=== PATIENT | female | born 1990 | race Caucasian/White ===

== ENCOUNTER 2023-10-05 04:54 | Emergency (ER) | payer BC, MEDICAID ==
[~2023-10-05] VITALS: Ht 162.6 cm; Wt 55.0 kg
[2023-10-05 05:50] VITALS: PULSE 75; RESP 16; O2SAT 96
[2023-10-05 06:09] LABS: Basophils # (auto) 0 10 ^3/uL (0-0.2); Basophils % (auto) 0.5 % (0.0-2.0); Eosinophils # (auto) 0.1 10 ^3/uL (0-0.8); Eosinophils % (auto) 1.9 % (0.0-7.0); Hematocrit 33.3 % (36.0-46.0); Hemoglobin 11.6 g/dL (12.2-16.2); Lymphocytes # (auto) 1.6 10 ^3/uL (0.4-5.4); Lymphocytes % (auto) 20.8 % (10.0-50.0); Mean Corpuscular Hemoglobin 31.2 pg (28.0-32.0); Mean Corpuscular Hgb Conc. 34.8 g/dL (32.0-36.0); Mean Corpuscular Volume 89.6 fL (80.0-100.0); Monocytes # (auto) 0.5 10 ^3/uL (0-1.3); Neutrophils # (auto) 5.5 10 ^3/uL (1.6-8.6); Neutrophils % (auto) 70.8 % (37.0-80.0); Red Blood Cells 3.71 10^6/uL (4.0-5.20); Red Cell Distribution Width 13.6 % (11.8-14.3); White Blood Cell 7.7 10^3/uL (4.4-10.8)
[2023-10-05 06:18] LABS: Alkaline Phosphatase 52 U/L (46-116); Anion Gap 10 (5-15); Aspartate Aminotransferase 10 U/L (13-40); BUN/Creatinine Ratio 9.8 (10.0-20.0); Blood Urea Nitrogen 6 mg/dL (9-23); Calcium 9.5 mg/dL (8.7-10.4); Carbon Dioxide 24 mmol/L (20-30); Chloride 108 mmol/L (98-107); Glucose 85 mg/dL (74-106); Potassium 4.1 mmol/L (3.5-5.1); Sodium 142 mmol/L (136-145)
[2023-10-05 06:19] LABS: Bilirubin, Total 0.5 mg/dL (0.2-1.0); Total Protein 6.7 g/dL (5.7-8.2)
[2023-10-05 06:50] LABS: Urine Bacteria None Seen /hpf (None Seen)
[2023-10-05 07:03] LABS: Alanine Aminotransferase < 9 U/L (7-40)
[2023-10-05 07:18] LABS: Urine Blood Negative /uL (Negative); Urine Clarity Clear (Clear); Urine Color Light-Yellow (Yellow); Urine Protein, UAD Negative (Negative); Urine Urobilinogen Normal (Negative); Urine WBC 6 /hpf (0 - 5); Urine pH 6.5 (5.0-9.0)
[2023-10-05] MEDS ORDERED: NITR-87 PO (07:56)
[2023-10-05 08:31] VITALS: BP 98/57; PULSE 72; RESP 12; TEMP 97.2; O2SAT 100
[2023-10-06] MEDS ORDERED: ACET-1304 PO (02:19)
== END 2023-10-05 09:33 | disposition home or self-care (01) ==
LOC: ER 04:54
DX: O23.32 Infections of other parts of urinary tract in pregnancy, second trimester (principal); R10.2 Pelvic and perineal pain; N39.0 Urinary tract infection, site not specified; Z3A.17 17 weeks gestation of pregnancy; Z88.1 Allergy status to other antibiotic agents
CPT/HCPCS: 36415; 36430; 76805; 80053; 81001; 84702; 85025; 86850; 86900; 86901

== ENCOUNTER 2023-10-05 22:42 | Emergency (ER) | payer BC, MEDICAID ==
[~2023-10-05] VITALS: Ht 162.6 cm; Wt 54.5 kg
[~2023-10-05 22:42] MED LIST: NITR-87 PO
[2023-10-05 23:49] LABS: Basophils # (auto) 0 10 ^3/uL (0-0.2); Basophils % (auto) 0.4 % (0.0-2.0); Eosinophils # (auto) 0.1 10 ^3/uL (0-0.8); Eosinophils % (auto) 0.5 % (0.0-7.0); Hematocrit 29.5 % (36.0-46.0); Hemoglobin 10.6 g/dL (12.2-16.2); Lymphocytes # (auto) 1.2 10 ^3/uL (0.4-5.4); Lymphocytes % (auto) 11.1 % (10.0-50.0); Mean Corpuscular Hemoglobin 31.8 pg (28.0-32.0); Mean Corpuscular Hgb Conc. 35.9 g/dL (32.0-36.0); Mean Corpuscular Volume 88.7 fL (80.0-100.0); Monocytes # (auto) 0.4 10 ^3/uL (0-1.3); Monocytes % (auto) 3.5 % (0.0-12.0); Neutrophils # (auto) 8.9 10 ^3/uL (1.6-8.6); Neutrophils % (auto) 84.5 % (37.0-80.0); Red Blood Cells 3.32 10^6/uL (4.0-5.20); Red Cell Distribution Width 13.3 % (11.8-14.3); White Blood Cell 10.6 10^3/uL (4.4-10.8)
[2023-10-05 23:58] LABS: Chloride 108 mmol/L (98-107); Potassium 3.5 mmol/L (3.5-5.1); Sodium 137 mmol/L (136-145)
[2023-10-05 23:59] LABS: Anion Gap 7 (5-15); Calcium 9.4 mg/dL (8.5-10.1); Carbon Dioxide 22 mmol/L (20-30)
[2023-10-06 00:04] LABS: Glucose 87 mg/dL (74-106)
[2023-10-06 00:11] VITALS: PULSE 93; RESP 22; O2SAT 97
[2023-10-06 00:14] LABS: BUN/Creatinine Ratio 8.8 (10.0-20.0); Blood Urea Nitrogen < 5 mg/dL (9-23)
[2023-10-06 00:33] LABS: INR 0.95 (0.9-1.15); Partial Thromboplastin Time 25.4 SEC (24.5-34.5); Prothrombin Time 10.1 sec (9.3-11.8)
[2023-10-06 01:46] LABS: Urine Bacteria None Seen /hpf (None Seen)
[2023-10-06 01:58] LABS: Urine Blood Negative /uL (Negative); Urine Clarity Clear (Clear); Urine Color Colorless (Yellow); Urine Protein, UAD Negative (Negative); Urine Specific Gravity 1.002 (1.001-1.035); Urine Urobilinogen Normal (Negative); Urine WBC <1 /hpf (0 - 5)
[2023-10-06] MEDS: METOCLOPRAMIDE HCL 5MG/ml INJ 2ml VIAL IV ONE (01:58)
[2023-10-06] MEDS: MORPHINE SULFATE 4 MG/ML SYR/VIAL IV ONE (01:59)
[2023-10-06] MEDS: SODIUM CHLORIDE 0.9% 1,000 ML IVB ONE (01:59)
[2023-10-06] MEDS ORDERED: ACET-1304 PO (02:19)
[2023-10-06 03:00] VITALS: BP 94/47; PULSE 68; RESP 19; TEMP 98.2; O2SAT 97
== END 2023-10-06 03:47 | disposition home or self-care (01) ==
LOC: ER 22:42
DX: O44.22 Partial placenta previa NOS or without hemorrhage, second trimester (principal); N39.0 Urinary tract infection, site not specified; Z3A.17 17 weeks gestation of pregnancy; Z88.1 Allergy status to other antibiotic agents
CPT/HCPCS: 36415; 76805; 80048; 81001; 85025; 85610; 85730; 86850; 86900; 86901; 96361; 96374; 96375; 99285; J2270; J2765; J7030